=== PATIENT | female | born 1960 | race Caucasian/White ===

== ENCOUNTER 2019-07-02 19:05 | Observation (INO) ==
[2019-07-02] MEDS ORDERED: Ondansetron 4 MG/2 ML VIAL IVP ONE (19:47)
[2019-07-02] MEDS ORDERED: 0.9 % Sodium Chloride 1,000 ML IVC ONE (19:47)
[2019-07-02 21:53] LABS: Basophils # 0.1 K/mcL (0.0-0.2); Basophils % 0.5 %; Eosinophils # 0.1 K/mcL (0.0-0.6); Eosinophils % 0.7 %; Hematocrit 49.2 % (35.3-44.9); Hemoglobin 15.7 g/dL (11.5-15.4); Immature Granulocytes % 0.3 % (0-4); Lymphocytes # 5.1 K/mcL (0.6-4.6); Mean Corpuscular HGB Conc 31.9 g/dL (31.6-35.5); Mean Corpuscular Hemoglobin 31.9 pg (28.0-33.3); Mean Platelet Volume 9.9 fL (9.4-12.4); Monocytes % 7.4 %; Neutrophils # 7.1 K/mcL (1.6-8.9); Platelet Count 276 K/mcL (140-400); Red Blood Count 4.92 M/mcL (3.82-4.97); Red Cell Distribution Width 12.9 % (11.5-14.5); Segmented Neutrophils % 53.1 %; White Blood Count 13.4 K/mcL (4.3-11.1)
[2019-07-02 23:31] LABS: Bilirubin,Urine Negative (Negative); Blood,Urine Negative (Negative); Clarity,Urine Clear (Clear); Color,Urine Yellow (Yellow); Glucose,Urine (UA) Normal (Normal); Ketones,Urine Negative (Negative); Leukocyte Esterase,Urine Trace (Negative); Nitrite,Urine Negative (Negative); Protein,Urine Negative (Neg-Trace); Specific Gravity,Urine 1.013 (1.010-1.025); Urobilinogen,Urine Normal (Normal)
[2019-07-02 23:33] LABS: Bacteria,Urine None Seen per hpf (None-Few); Hyaline Casts,Urine None Seen per lpf (None-Few); RBC,Urine 0-3 per hpf (0-3); Squamous Epithelial Cell,Urine Many per lpf (None-Few)
[2019-07-02 23:34] LABS: BUN/Creatinine Ratio 24 (6-26); Blood Urea Nitrogen 19 mg/dL (6-20); Carbon Dioxide 26 mEq/L (23-29); Chloride 109 mEq/L (98-107); Glucose 96 mg/dL (70-105); Osmolality,Calculated 294 (280-300); Potassium 3.8 mEq/L (3.5-5.1); Sodium 141 mEq/L (136-145); eGFR For African Americans > 60 (> 60); eGFR For Non-African Americans > 60 (> 60)
[2019-07-02] MEDS ORDERED: Azithromycin 500 MG in 0.9 % Sodium Chloride 250 ML IVPB ONE (23:40)
[2019-07-02] MEDS ORDERED: cefTRIAXone 1,000 MG in Water for inj. (sterile) 10 ML IVP ONE (23:40)
[2019-07-02 23:43] LABS: Amphetamine Screen,Urine Negative ng/mL (Cutoff=1000); Barbiturate Screen,Urine Negative ng/mL (Cutoff=200); Benzodiazepines Screen,Urine Positive ng/mL (Cutoff=200); Cannabinoid Screen,Urine Negative ng/mL (Cutoff = 50); Cocaine Screen,Urine Negative ng/mL (Cutoff= 300); Opiate Screen,Urine Negative ng/mL (Cutoff=300); Phencyclidine Screen,Urine Negative ng/mL (Cutoff=25)
[2019-07-03] MEDS ORDERED: Ondansetron ODT 4 MG TAB.RAPDIS SL PRN (00:55)
[2019-07-03] MEDS ORDERED: Naloxone 0.4 MG/ML INJ IVP PRN (00:55)
[2019-07-03] MEDS ORDERED: Acetaminophen 325 MG TABLET PO PRN ×2 (00:58→18:20)
[2019-07-03] MEDS ORDERED: Albuterol 2.5 MG/3 ML NEBULIZER IH PRN (00:58)
[2019-07-03] MEDS: Ipratropium 1 PUFF INHALER IH SCH ×5 (03:54→19:47)
[2019-07-03 05:02] LABS: Hematocrit 40.9 % (35.3-44.9); Hemoglobin 13.1 g/dL (11.5-15.4); Mean Corpuscular Hemoglobin 32.2 pg (28.0-33.3); Mean Corpuscular Volume 100.5 fL (83.0-100.0); Mean Platelet Volume 9.7 fL (9.4-12.4); Platelet Count 215 K/mcL (140-400); Red Blood Count 4.07 M/mcL (3.82-4.97); Red Cell Distribution Width 12.7 % (11.5-14.5); White Blood Count 9.5 K/mcL (4.3-11.1)
[2019-07-03 05:21] LABS: BUN/Creatinine Ratio 23 (6-26); Blood Urea Nitrogen 18 mg/dL (6-20); Calcium 8.9 mg/dL (8.6-10.3); Carbon Dioxide 30 mEq/L (23-29); Chloride 109 mEq/L (98-107); Glucose 115 mg/dL (70-105); Osmolality,Calculated 299 (280-300); Sodium 143 mEq/L (136-145); eGFR For African Americans > 60 (> 60); eGFR For Non-African Americans > 60 (> 60)
[2019-07-03] MEDS ORDERED: *HR* Heparin 5,000 UNIT/ML VIAL SQ SCH (06:00)
[2019-07-03 07:03] LABS: Adenovirus Not Detected (Not Detect); Bordetella Pertussis Not Detected (Not Detect); Chlamydophila pneumoniae Not Detected (Not Detect); Coronavirus 229E Not Detected (Not Detect); Coronavirus HKU1 Not Detected (Not Detect); Coronavirus NL63 Not Detected (Not Detect); Coronavirus OC43 Not Detected (Not Detect); Human Metapneumovirus Not Detected (Not Detect); Human Rhinovirus/Enterovirus DETECTED (Not Detect); Influenza A Subtype 2009 H1 Not Detected (Not Detect); Influenza B Not Detected (Not Detect); Mycoplasma pneumoniae Not Detected (Not Detect); Parainfluenza Virus 1 Not Detected (Not Detect); Parainfluenza Virus 2 Not Detected (Not Detect); Parainfluenza Virus 3 Not Detected (Not Detect); Parainfluenza Virus 4 Not Detected (Not Detect); Respiratory Syncytial Virus Not Detected (Not Detect)
[2019-07-03] MEDS: Budesonide/Formoterol 160/4.5 1 PUFF INH IH SCH ×2 (07:32→19:46)
[2019-07-03] MEDS: amLODIPine 5 MG TABLET PO SCH (08:58)
[2019-07-03] MEDS ORDERED: predniSONE 20 MG TABLET PO SCH (09:00)
[2019-07-03] MEDS ORDERED: *HR* Labetalol 20 MG/4 ML SYRINGE IVP PRN (09:01)
[2019-07-03] MEDS ORDERED: cefTRIAXone 1,000 MG in Water for inj. (sterile) 10 ML IVP SCH (18:00)
[2019-07-04] MEDS: Ipratropium 1 PUFF INHALER IH SCH ×4 (00:27→11:07)
[2019-07-04] MEDS ORDERED: Azithromycin 500 MG in 0.9 % Sodium Chloride 250 ML IVPB SCH (01:00)
[2019-07-04 04:41] LABS: Hematocrit 40.6 % (35.3-44.9); Hemoglobin 13.3 g/dL (11.5-15.4); Mean Corpuscular HGB Conc 32.8 g/dL (31.6-35.5); Mean Corpuscular Hemoglobin 31.7 pg (28.0-33.3); Mean Corpuscular Volume 96.7 fL (83.0-100.0); Mean Platelet Volume 9.9 fL (9.4-12.4); Platelet Count 229 K/mcL (140-400); Red Cell Distribution Width 12.3 % (11.5-14.5); White Blood Count 12.2 K/mcL (4.3-11.1)
[2019-07-04 05:01] LABS: BUN/Creatinine Ratio 33 (6-26); Blood Urea Nitrogen 22 mg/dL (6-20); Calcium 8.9 mg/dL (8.6-10.3); Carbon Dioxide 26 mEq/L (23-29); Chloride 106 mEq/L (98-107); Glucose 108 mg/dL (70-105); Osmolality,Calculated 294 (280-300); Potassium 3.7 mEq/L (3.5-5.1); Sodium 140 mEq/L (136-145); eGFR For African Americans > 60 (> 60); eGFR For Non-African Americans > 60 (> 60)
[2019-07-04] MEDS ORDERED: *HR* Enoxaparin 40 MG/0.4 ML SYRINGE SQ SCH (06:00)
[2019-07-04] MEDS: amLODIPine 5 MG TABLET PO SCH (08:06)
[2019-07-04] MEDS: Budesonide/Formoterol 160/4.5 1 PUFF INH IH SCH (08:42)
[2019-07-04 09:37] VITALS: BP 146/97
[2019-07-04] MEDS ORDERED: cefTRIAXone 1,000 MG in Water for inj. (sterile) 10 ML IVP SCH (11:11)
== END 2019-07-04 12:04 | disposition home or self-care (01) ==
LOC: 2NENU 19:05 → EMEROOARM 19:05 → 2NENU 07-03 01:11
PROVIDERS: ADMIT Student in an Organized Health Care Education/Training Program; ATTEND Student in an Organized Health Care Education/Training Program

== ENCOUNTER 2020-07-24 14:55 | Inpatient (IN) ==
[2020-07-24] MEDS ORDERED: methylPREDNISolone 125 MG/2 ML VIAL IVP ONE (15:07)
[2020-07-24] MEDS ORDERED: 0.9 % Sodium Chloride 1,000 ML IVC ONE (15:07)
[2020-07-24] MEDS ORDERED: Ipratropium/Albuterol Neb 3 ML IH ONE (15:07)
[2020-07-24 15:56] LABS: Basophils % 0.1 %; Hematocrit 42.6 % (35.3-44.9); Immature Granulocytes % 0.5 % (0-4); Lymphocytes # 0.8 K/mcL (0.6-4.6); Lymphocytes % 4.2 %; Mean Corpuscular HGB Conc 32.9 g/dL (31.6-35.5); Mean Corpuscular Volume 94.2 fL (83.0-100.0); Monocytes # 0.6 K/mcL (0.0-1.3); Neutrophils # 16.7 K/mcL (1.6-8.9); Platelet Count 237 K/mcL (140-400); Red Blood Count 4.52 M/mcL (3.82-4.97); Red Cell Distribution Width 13.2 % (11.5-14.5); Segmented Neutrophils % 92.2 %; White Blood Count 18.1 K/mcL (4.3-11.1)
[2020-07-24 16:22] LABS: BUN/Creatinine Ratio 18 (6-26); Blood Urea Nitrogen 13 mg/dL (8-23); Calcium 9.7 mg/dL (8.6-10.3); Carbon Dioxide 26 mEq/L (23-29); Chloride 105 mEq/L (98-107); Glucose 147 mg/dL (70-105); Osmolality,Calculated 295 (280-300); Potassium 3.8 mEq/L (3.5-5.1); Sodium 141 mEq/L (136-145); Troponin I < 0.03 ng/mL (< 0.04); eGFR For African Americans > 60 (> 60); eGFR For Non-African Americans > 60 (> 60)
[2020-07-24] MEDS ORDERED: Magnesium Sulfate 1 GM/102 ML PIGGYBACK IVPB STA (16:50)
[2020-07-24] MEDS ORDERED: *HR* LORazepam 2 MG/ML VIAL IVP ONE (17:19)
[2020-07-24 18:00] LABS: Adenovirus Not Detected (Not Detect); Coronavirus 229E Not Detected (Not Detect); Coronavirus HKU1 Not Detected (Not Detect); Coronavirus NL63 Not Detected (Not Detect); Coronavirus OC43 DETECTED (Not Detect); SARS-CoV-2 Not Detected (Not Detect)
[2020-07-24 18:01] LABS: Bordetella Pertussis Not Detected (Not Detect); Chlamydophila pneumoniae Not Detected (Not Detect); Human Metapneumovirus Not Detected (Not Detect); Human Rhinovirus/Enterovirus Not Detected (Not Detect); Influenza A Subtype 2009 H1 Not Detected (Not Detect); Influenza B Not Detected (Not Detect); Mycoplasma pneumoniae Not Detected (Not Detect); Parainfluenza Virus 1 Not Detected (Not Detect); Parainfluenza Virus 2 Not Detected (Not Detect); Parainfluenza Virus 3 Not Detected (Not Detect); Parainfluenza Virus 4 Not Detected (Not Detect); Respiratory Syncytial Virus Not Detected (Not Detect)
[2020-07-24] MEDS ORDERED: Ondansetron 4 MG/2 ML VIAL IVP PRN (20:23)
[2020-07-24] MEDS ORDERED: Naloxone 0.4 MG/ML INJ IVP PRN (20:23)
[2020-07-24] MEDS ORDERED: Acetaminophen 325 MG TABLET PO PRN (20:23)
[2020-07-24] MEDS ORDERED: Albuterol 2.5 MG/3 ML NEBULIZER IH PRN (21:50)
[2020-07-24] MEDS: Ipratropium/Albuterol Neb 3 ML IH SCH (22:17)
[2020-07-25] MEDS ORDERED: Dextrose Gel 15 GM/37.5 ML TUBE PO PRN ×2 (00:15)
[2020-07-25] MEDS ORDERED: D5% in Water 1,000 ML IVC PRN (00:15)
[2020-07-25] MEDS ORDERED: *HR* Dextrose 50 % in Water (Vial) 50 ML VIAL IVP PRN (00:15)
[2020-07-25] MEDS: Azithromycin 500 MG in 0.9 % Sodium Chloride 250 ML IVPB SCH ×2 (00:45→21:00)
[2020-07-25 02:49] LABS: Basophils % 0.1 %; Hematocrit 37.4 % (35.3-44.9); Hemoglobin 12.5 g/dL (11.5-15.4); Immature Granulocytes % 0.7 % (0-4); Lymphocytes # 0.8 K/mcL (0.6-4.6); Lymphocytes % 5.5 %; Mean Corpuscular HGB Conc 33.4 g/dL (31.6-35.5); Mean Corpuscular Volume 95.7 fL (83.0-100.0); Mean Platelet Volume 10.3 fL (9.4-12.4); Monocytes # 0.7 K/mcL (0.0-1.3); Monocytes % 4.8 %; Neutrophils # 12.3 K/mcL (1.6-8.9); Platelet Count 187 K/mcL (140-400); Red Blood Count 3.91 M/mcL (3.82-4.97); Red Cell Distribution Width 13.6 % (11.5-14.5); Segmented Neutrophils % 88.9 %; White Blood Count 13.8 K/mcL (4.3-11.1)
[2020-07-25 03:08] LABS: Alanine Aminotransferase 14 Units/L (7-52); Albumin 3.5 g/dL (3.5-5.7); Albumin/Globulin Ratio 1.6 (1.1-2.2); Alkaline Phosphatase 51 Units/L (34-104); Aspartate Amino Transferase 12 Units/L (13-39); BUN/Creatinine Ratio 23 (6-26); Bilirubin,Total 0.3 mg/dL (0.3-1.0); Blood Urea Nitrogen 15 mg/dL (8-23); Calcium 8.6 mg/dL (8.6-10.3); Carbon Dioxide 24 mEq/L (23-29); Chloride 108 mEq/L (98-107); Globulin 2.2 g/dL (2.4-3.5); Glucose 258 mg/dL (70-105); Magnesium 2.1 mg/dL (1.6-2.6); Osmolality,Calculated 300 (280-300); Phosphorous 2.4 mg/dL (2.7-4.5); Sodium 140 mEq/L (136-145); Total Protein 5.7 g/dL (6.4-8.9); Troponin I < 0.03 ng/mL (< 0.04); eGFR For African Americans > 60 (> 60); eGFR For Non-African Americans > 60 (> 60)
[2020-07-25] MEDS: Ipratropium/Albuterol Neb 3 ML IH SCH ×4 (04:15→21:23)
[2020-07-25] MEDS: *HR* Heparin 5,000 UNIT/ML VIAL SQ SCH ×2 (06:51→17:09)
[2020-07-25] MEDS: Insulin LISPRO 300 UNITS/3 ML VIAL SUBQ SCH ×4 (07:16→20:58)
[2020-07-25] MEDS ORDERED: predniSONE 20 MG TABLET PO SCH (09:00)
[2020-07-25] MEDS ORDERED: methylPREDNISolone 125 MG/2 ML VIAL IVP ONE (10:26)
[2020-07-25] MEDS ORDERED: *HR* LORazepam 1 MG TABLET PO ONE (10:27)
[2020-07-25] MEDS: Budesonide/Formoterol 160/4.5 1 PUFF INH IH SCH ×2 (10:40→21:23)
[2020-07-25] MEDS: Nicotine 21 MG PATCH.TD24 TD SCH (10:54)
[2020-07-25] MEDS ORDERED: Nicotine 2 MG GUM BC PRN (12:00)
[2020-07-25 12:01] LABS: Hemoglobin 12.5 g/dL (11.5-15.4)
[2020-07-25] MEDS: lisinopriL 20 MG TABLET PO SCH (14:40)
[2020-07-25] MEDS: Benzonatate 100 MG CAPSULE PO PRN (14:40)
[2020-07-25] MEDS: MethylPREDNISolone 40 MG/ML VIAL IVP SCH (17:08)
[2020-07-25] MEDS: QUEtiapine Fumarate 25 MG TABLET PO SCH (20:59)
[2020-07-25] MEDS: Melatonin 3 MG TABLET PO PRN (21:18)
[2020-07-26] MEDS: Ipratropium/Albuterol Neb 3 ML IH SCH ×4 (03:29→21:43)
[2020-07-26] MEDS: *HR* Heparin 5,000 UNIT/ML VIAL SQ SCH ×2 (05:39→18:03)
[2020-07-26] MEDS: MethylPREDNISolone 40 MG/ML VIAL IVP SCH ×2 (05:40→18:03)
[2020-07-26 06:01] LABS: Hematocrit 38.2 % (35.3-44.9); Hemoglobin 12.3 g/dL (11.5-15.4); Mean Corpuscular HGB Conc 32.2 g/dL (31.6-35.5); Mean Corpuscular Hemoglobin 31.1 pg (28.0-33.3); Mean Corpuscular Volume 96.5 fL (83.0-100.0); Platelet Count 191 K/mcL (140-400); Red Blood Count 3.96 M/mcL (3.82-4.97); Red Cell Distribution Width 13.4 % (11.5-14.5); White Blood Count 12.5 K/mcL (4.3-11.1)
[2020-07-26 06:20] LABS: BUN/Creatinine Ratio 24 (6-26); Blood Urea Nitrogen 17 mg/dL (8-23); Calcium 8.9 mg/dL (8.6-10.3); Carbon Dioxide 33 mEq/L (23-29); Chloride 105 mEq/L (98-107); Glucose 131 mg/dL (70-105); Magnesium 2.1 mg/dL (1.6-2.6); Osmolality,Calculated 299 (280-300); Phosphorous 3.4 mg/dL (2.7-4.5); Potassium 3.6 mEq/L (3.5-5.1); Sodium 143 mEq/L (136-145); eGFR For African Americans > 60 (> 60); eGFR For Non-African Americans > 60 (> 60)
[2020-07-26 07:08] LABS: Estimated Average Glucose 126 mg/dl
[2020-07-26] MEDS: Insulin LISPRO 300 UNITS/3 ML VIAL SUBQ SCH ×4 (07:55→20:50)
[2020-07-26] MEDS: lisinopriL 20 MG TABLET PO SCH (07:57)
[2020-07-26] MEDS: Cholecalciferol (D-3) 1,000 UNIT (25MCG) TABLET PO SCH (07:57)
[2020-07-26] MEDS: Nicotine 21 MG PATCH.TD24 TD SCH (07:57)
[2020-07-26] MEDS: Tiotropium 10 INH DOSE IH SCH (11:06)
[2020-07-26] MEDS: Budesonide/Formoterol 160/4.5 1 PUFF INH IH SCH ×2 (11:08→21:43)
[2020-07-26] MEDS: ALPRAZolam 0.5 MG TABLET PO PRN ×2 (14:16→20:52)
[2020-07-26] MEDS: QUEtiapine Fumarate 25 MG TABLET PO SCH (20:52)
[2020-07-26] MEDS: Melatonin 3 MG TABLET PO PRN (20:52)
[2020-07-26] MEDS: Benzonatate 100 MG CAPSULE PO PRN (20:52)
[2020-07-26] MEDS: Azithromycin 500 MG in 0.9 % Sodium Chloride 250 ML IVPB SCH (20:53)
[2020-07-26] MEDS ORDERED: Nicotine 21 MG PATCH.TD24 TD ONE (21:15)
[2020-07-27 02:54] LABS: Hematocrit 38.1 % (35.3-44.9); Hemoglobin 12.2 g/dL (11.5-15.4); Mean Corpuscular Volume 96.9 fL (83.0-100.0); Platelet Count 189 K/mcL (140-400); Red Blood Count 3.93 M/mcL (3.82-4.97); Red Cell Distribution Width 13.2 % (11.5-14.5); White Blood Count 11.4 K/mcL (4.3-11.1)
[2020-07-27 03:09] LABS: BUN/Creatinine Ratio 38 (6-26); Blood Urea Nitrogen 25 mg/dL (8-23); Calcium 8.4 mg/dL (8.6-10.3); Carbon Dioxide 30 mEq/L (23-29); Chloride 105 mEq/L (98-107); Glucose 159 mg/dL (70-105); Magnesium 2.1 mg/dL (1.6-2.6); Osmolality,Calculated 296 (280-300); Phosphorous 2.6 mg/dL (2.7-4.5); Potassium 3.9 mEq/L (3.5-5.1); Sodium 139 mEq/L (136-145); eGFR For African Americans > 60 (> 60); eGFR For Non-African Americans > 60 (> 60)
[2020-07-27] MEDS: Ipratropium/Albuterol Neb 3 ML IH SCH ×2 (04:06→10:19)
[2020-07-27] MEDS: *HR* Heparin 5,000 UNIT/ML VIAL SQ SCH ×2 (05:51→16:52)
[2020-07-27] MEDS: MethylPREDNISolone 40 MG/ML VIAL IVP SCH ×2 (05:51→16:52)
[2020-07-27] MEDS: Tiotropium 10 INH DOSE IH SCH (07:11)
[2020-07-27] MEDS: Insulin LISPRO 300 UNITS/3 ML VIAL SUBQ SCH ×4 (09:37→20:19)
[2020-07-27] MEDS: Nicotine 21 MG PATCH.TD24 TD SCH (09:37)
[2020-07-27] MEDS: Cholecalciferol (D-3) 1,000 UNIT (25MCG) TABLET PO SCH (09:37)
[2020-07-27] MEDS: lisinopriL 20 MG TABLET PO SCH (09:37)
[2020-07-27] MEDS: ALPRAZolam 0.5 MG TABLET PO PRN ×2 (09:40→18:19)
[2020-07-27] MEDS: Budesonide/Formoterol 160/4.5 1 PUFF INH IH SCH ×2 (10:19→19:40)
[2020-07-27] MEDS: Acetylcysteine 10% 2 ML INHSOL IH SCH ×3 (11:17→23:56)
[2020-07-27] MEDS: Albuterol 2.5 MG/3 ML NEBULIZER IH SCH ×4 (11:17→23:56)
[2020-07-27] MEDS: QUEtiapine Fumarate 25 MG TABLET PO SCH (20:05)
[2020-07-27] MEDS: Melatonin 3 MG TABLET PO PRN (21:57)
[2020-07-28] MEDS: Albuterol 2.5 MG/3 ML NEBULIZER IH SCH ×2 (03:52→07:28)
[2020-07-28 04:12] LABS: Hematocrit 39.8 % (35.3-44.9); Mean Corpuscular HGB Conc 32.7 g/dL (31.6-35.5); Mean Corpuscular Hemoglobin 31.3 pg (28.0-33.3); Mean Corpuscular Volume 95.7 fL (83.0-100.0); Mean Platelet Volume 9.8 fL (9.4-12.4); Platelet Count 240 K/mcL (140-400); Red Blood Count 4.16 M/mcL (3.82-4.97); Red Cell Distribution Width 12.9 % (11.5-14.5); White Blood Count 12.1 K/mcL (4.3-11.1)
[2020-07-28 04:31] LABS: BUN/Creatinine Ratio 37 (6-26); Blood Urea Nitrogen 20 mg/dL (8-23); Calcium 8.6 mg/dL (8.6-10.3); Carbon Dioxide 30 mEq/L (23-29); Chloride 105 mEq/L (98-107); Glucose 142 mg/dL (70-105); Magnesium 2.1 mg/dL (1.6-2.6); Osmolality,Calculated 297 (280-300); Phosphorous 2.5 mg/dL (2.7-4.5); Potassium 3.7 mEq/L (3.5-5.1); Sodium 141 mEq/L (136-145); eGFR For African Americans > 60 (> 60); eGFR For Non-African Americans > 60 (> 60)
[2020-07-28] MEDS: MethylPREDNISolone 40 MG/ML VIAL IVP SCH ×4 (05:03→23:49)
[2020-07-28] MEDS: *HR* Heparin 5,000 UNIT/ML VIAL SQ SCH ×2 (05:04→16:46)
[2020-07-28] MEDS: Budesonide/Formoterol 160/4.5 1 PUFF INH IH SCH ×2 (07:28→20:29)
[2020-07-28] MEDS: Insulin LISPRO 300 UNITS/3 ML VIAL SUBQ SCH ×4 (08:10→21:27)
[2020-07-28] MEDS: Nicotine 21 MG PATCH.TD24 TD SCH (08:10)
[2020-07-28] MEDS: Cholecalciferol (D-3) 1,000 UNIT (25MCG) TABLET PO SCH (08:11)
[2020-07-28] MEDS: lisinopriL 20 MG TABLET PO SCH (08:11)
[2020-07-28] MEDS: ALPRAZolam 0.5 MG TABLET PO PRN ×2 (08:13→16:46)
[2020-07-28] MEDS: Ipratropium/Albuterol Neb 3 ML IH SCH ×5 (09:54→23:59)
[2020-07-28] MEDS: amLODIPine 5 MG TABLET PO SCH (11:23)
[2020-07-28] MEDS: polyethylene glycoL 3350 17 GM POWD.PACK PO SCH (14:05)
[2020-07-28] MEDS: QUEtiapine Fumarate 25 MG TABLET PO SCH (21:25)
[2020-07-28] MEDS: Melatonin 3 MG TABLET PO PRN (21:33)
[2020-07-29] MEDS: Ipratropium/Albuterol Neb 3 ML IH SCH ×3 (03:52→10:43)
[2020-07-29] MEDS: *HR* Heparin 5,000 UNIT/ML VIAL SQ SCH (05:27)
[2020-07-29 07:09] LABS: Hematocrit 40.7 % (35.3-44.9); Hemoglobin 13.8 g/dL (11.5-15.4); Mean Corpuscular HGB Conc 33.9 g/dL (31.6-35.5); Mean Corpuscular Hemoglobin 31.8 pg (28.0-33.3); Mean Corpuscular Volume 93.8 fL (83.0-100.0); Mean Platelet Volume 9.9 fL (9.4-12.4); Platelet Count 287 K/mcL (140-400); Red Blood Count 4.34 M/mcL (3.82-4.97); Red Cell Distribution Width 12.9 % (11.5-14.5); White Blood Count 15.5 K/mcL (4.3-11.1)
[2020-07-29 07:12] LABS: BUN/Creatinine Ratio 34 (6-26); Blood Urea Nitrogen 20 mg/dL (8-23); Calcium 8.8 mg/dL (8.6-10.3); Carbon Dioxide 31 mEq/L (23-29); Chloride 105 mEq/L (98-107); Glucose 143 mg/dL (70-105); Magnesium 2.1 mg/dL (1.6-2.6); Osmolality,Calculated 297 (280-300); Phosphorous 2.9 mg/dL (2.7-4.5); Sodium 141 mEq/L (136-145); eGFR For African Americans > 60 (> 60); eGFR For Non-African Americans > 60 (> 60)
[2020-07-29 07:50] VITALS: BP 153/88
[2020-07-29] MEDS: Budesonide/Formoterol 160/4.5 1 PUFF INH IH SCH (07:53)
[2020-07-29] MEDS: ALPRAZolam 0.5 MG TABLET PO PRN (08:22)
[2020-07-29] MEDS: amLODIPine 5 MG TABLET PO SCH (08:22)
[2020-07-29] MEDS: lisinopriL 20 MG TABLET PO SCH (08:22)
[2020-07-29] MEDS: Cholecalciferol (D-3) 1,000 UNIT (25MCG) TABLET PO SCH (08:22)
[2020-07-29] MEDS: MethylPREDNISolone 40 MG/ML VIAL IVP SCH (08:23)
[2020-07-29] MEDS: Nicotine 21 MG PATCH.TD24 TD SCH (08:23)
[2020-07-29] MEDS: Insulin LISPRO 300 UNITS/3 ML VIAL SUBQ SCH (08:23)
[2020-07-29] MEDS: polyethylene glycoL 3350 17 GM POWD.PACK PO SCH (08:24)
[2020-07-29 08:26] LABS: Lymphocytes # 2.5 K/mcL (0.6-4.6); Monocytes # 1.9 K/mcL (0.0-1.3); Neutrophils # 11.2 K/mcL (1.6-8.9); Platelet Estimate Normal (Normal)
== END 2020-07-29 11:13 | disposition home or self-care (01) | DRG 140 ==
LOC: 2ANU 14:55 → EMEROOARM 14:55 → SUATTDRO 18:55 → 2ANU 20:05
PROVIDERS: ADMIT Internal Medicine; ATTEND Internal Medicine

== ENCOUNTER 2021-10-01 04:18 | Observation (INO) ==
[2021-10-01] MEDS ORDERED: predniSONE 20 MG TABLET PO ONE (05:26)
[2021-10-01] MEDS ORDERED: Ipratropium/Albuterol Neb 3 ML IH ONE (05:26)
[2021-10-01 05:51] LABS: Basophils # 0.1 K/mcL (0.0-0.2); Basophils % 0.7 %; Eosinophils # 0.2 K/mcL (0.0-0.6); Eosinophils % 1.3 %; Hematocrit 40.9 % (35.3-44.9); Hemoglobin 13.8 g/dL (11.5-15.4); Immature Granulocytes % 0.4 % (0-4); Lymphocytes % 17.3 %; Mean Corpuscular HGB Conc 33.7 g/dL (31.6-35.5); Mean Corpuscular Hemoglobin 30.9 pg (28.0-33.3); Mean Corpuscular Volume 91.7 fL (83.0-100.0); Mean Platelet Volume 9.1 fL (9.4-12.4); Monocytes # 0.7 K/mcL (0.0-1.3); Monocytes % 6.2 %; Neutrophils # 8.4 K/mcL (1.6-8.9); Platelet Count 255 K/mcL (140-400); Red Blood Count 4.46 M/mcL (3.82-4.97); Red Cell Distribution Width 13.4 % (11.5-14.5); Segmented Neutrophils % 74.1 %; White Blood Count 11.3 K/mcL (4.3-11.1)
[2021-10-01 06:16] LABS: BUN/Creatinine Ratio 18 (6-26); Blood Urea Nitrogen 12 mg/dL (8-23); Calcium 9.4 mg/dL (8.6-10.3); Carbon Dioxide 28 mEq/L (23-29); Chloride 106 mEq/L (98-107); Glucose 112 mg/dL (70-105); Osmolality,Calculated 293 (280-300); Potassium 3.9 mEq/L (3.5-5.1); Sodium 141 mEq/L (136-145); eGFR For African Americans > 60 (> 60); eGFR For Non-African Americans > 60 (> 60)
[2021-10-01 06:23] LABS: Influenza A PCR Negative (Negative); Influenza B PCR Negative (Negative); Resp. Syncytial Virus PCR Negative (Negative)
[2021-10-01 06:30] LABS: Troponin I 0.29 ng/mL (< 0.04)
[2021-10-01 06:31] LABS: SARS-CoV-2 by PCR (In House) Negative (Negative)
[2021-10-01] MEDS ORDERED: Aspirin 81 MG TAB.CHEW PO ONE (06:43)
[2021-10-01] MEDS ORDERED: *HR* Heparin 5,000 UNIT/ML VIAL IVP ONE (06:44)
[2021-10-01] MEDS ORDERED: *HR* Heparin 5,000 UNIT/ML VIAL IVP PRN ×2 (06:44)
[2021-10-01 07:12] LABS: Hematocrit 31.5 % (35.3-44.9); Mean Corpuscular Hemoglobin 31.6 pg (28.0-33.3); Mean Corpuscular Volume 92.9 fL (83.0-100.0); Mean Platelet Volume 9.3 fL (9.4-12.4); Platelet Count 190 K/mcL (140-400); Red Blood Count 3.39 M/mcL (3.82-4.97); Red Cell Distribution Width 13.4 % (11.5-14.5); White Blood Count 8.6 K/mcL (4.3-11.1)
[2021-10-01 07:16] LABS: Hemoglobin 10.7 g/dL (11.5-15.4)
[2021-10-01 07:22] LABS: Heparin anti-factor XA UFH < 0.04 IU/mL (0.30-0.70)
[2021-10-01] MEDS ORDERED: Ondansetron 4 MG/2 ML VIAL IVP PRN (07:22)
[2021-10-01 07:23] LABS: Prothrombin Time 11.2 Seconds (9.4-12.1)
[2021-10-01] MEDS ORDERED: Perflutren Lipid Microsphere 1.3 ML in 0.9 % Sodium Chloride 8.7 ML IVP PRN (07:23)
[2021-10-01] MEDS: Heparin 25,000UNIT/250ML 1/2NS 25,000 UNIT/250 ML IV.SOLN IVC SCH (08:04)
[2021-10-01] MEDS: Nicotine 21 MG PATCH.TD24 TD SCH (09:03)
[2021-10-01] MEDS: Azithromycin 500 MG in 0.9 % Sodium Chloride 250 ML IVPB SCH (09:03)
[2021-10-01] MEDS: Albuterol 2.5 MG/3 ML NEBULIZER IH SCH ×3 (11:11→20:41)
[2021-10-01] MEDS: *HR* LORazepam 0.5 MG TABLET PO PRN ×2 (11:11→19:14)
[2021-10-01] MEDS: Aspirin 81 MG TAB.CHEW PO SCH (16:28)
[2021-10-01] MEDS: amLODIPine 5 MG TABLET PO SCH (17:44)
[2021-10-01] MEDS: QUEtiapine Fumarate 25 MG TABLET PO SCH (20:31)
[2021-10-01] MEDS: Famotidine 20 MG TABLET PO SCH (20:32)
[2021-10-02] MEDS: Albuterol 2.5 MG/3 ML NEBULIZER IH SCH ×7 (00:01→22:53)
[2021-10-02 02:14] LABS: Blood Urea Nitrogen 16 mg/dL (8-23); Calcium 8.9 mg/dL (8.6-10.3); Carbon Dioxide 25 mEq/L (23-29); Chloride 108 mEq/L (98-107); Glucose 145 mg/dL (70-105); Osmolality,Calculated 294 (280-300); Potassium 3.5 mEq/L (3.5-5.1); Sodium 140 mEq/L (136-145)
[2021-10-02 03:22] LABS: BUN/Creatinine Ratio 19 (6-26); eGFR For African Americans > 60 (> 60); eGFR For Non-African Americans > 60 (> 60)
[2021-10-02 05:29] LABS: Basophils # 0.1 K/mcL (0.0-0.2); Basophils % 0.7 %; Eosinophils # 0.1 K/mcL (0.0-0.6); Eosinophils % 0.9 %; Hematocrit 37.8 % (35.3-44.9); Hemoglobin 12.7 g/dL (11.5-15.4); Immature Granulocytes % 0.3 % (0-4); Lymphocytes # 4.6 K/mcL (0.6-4.6); Lymphocytes % 48.7 %; Mean Corpuscular HGB Conc 33.6 g/dL (31.6-35.5); Mean Corpuscular Hemoglobin 30.9 pg (28.0-33.3); Mean Platelet Volume 9.7 fL (9.4-12.4); Monocytes # 0.8 K/mcL (0.0-1.3); Monocytes % 8.2 %; Neutrophils # 3.9 K/mcL (1.6-8.9); Platelet Count 236 K/mcL (140-400); Red Blood Count 4.11 M/mcL (3.82-4.97); Red Cell Distribution Width 13.7 % (11.5-14.5); Segmented Neutrophils % 41.2 %; White Blood Count 9.4 K/mcL (4.3-11.1)
[2021-10-02] MEDS: Aspirin 81 MG TAB.CHEW PO SCH (07:19)
[2021-10-02] MEDS: *HR* LORazepam 0.5 MG TABLET PO PRN ×3 (07:19→22:15)
[2021-10-02] MEDS: amLODIPine 5 MG TABLET PO SCH (07:19)
[2021-10-02] MEDS: Famotidine 20 MG TABLET PO SCH ×2 (07:19→19:59)
[2021-10-02] MEDS: Nicotine 21 MG PATCH.TD24 TD SCH (07:20)
[2021-10-02] MEDS: Cholecalciferol (D-3) 1,000 UNIT (25MCG) TABLET PO SCH (07:39)
[2021-10-02] MEDS: Azithromycin 500 MG in 0.9 % Sodium Chloride 250 ML IVPB SCH (07:39)
[2021-10-02] MEDS ORDERED: Perflutren Lipid Microsphere 1.3 ML in 0.9 % Sodium Chloride 8.7 ML IVP PRN (08:15)
[2021-10-02] MEDS ORDERED: lisinopriL 20 MG TABLET PO SCH (09:00)
[2021-10-02] MEDS ORDERED: MethylPREDNISolone 40 MG/ML VIAL IVP SCH (09:00)
[2021-10-02] MEDS: QUEtiapine Fumarate 25 MG TABLET PO SCH (19:59)
[2021-10-03] MEDS: Heparin 25,000UNIT/250ML 1/2NS 25,000 UNIT/250 ML IV.SOLN IVC SCH ×3 (00:50→19:43)
[2021-10-03] MEDS: Albuterol 2.5 MG/3 ML NEBULIZER IH SCH ×2 (04:32→07:33)
[2021-10-03] MEDS ORDERED: Benzonatate 100 MG CAPSULE PO PRN (08:33)
[2021-10-03] MEDS: Ipratropium/Albuterol Neb 3 ML IH SCH ×3 (08:54→22:51)
[2021-10-03] MEDS: Cholecalciferol (D-3) 1,000 UNIT (25MCG) TABLET PO SCH (09:26)
[2021-10-03] MEDS: predniSONE 20 MG TABLET PO SCH (09:26)
[2021-10-03] MEDS: Famotidine 20 MG TABLET PO SCH ×2 (09:26→20:44)
[2021-10-03] MEDS: Aspirin 81 MG TAB.CHEW PO SCH (09:27)
[2021-10-03] MEDS: Nicotine 21 MG PATCH.TD24 TD SCH (09:27)
[2021-10-03] MEDS: Azithromycin 250 MG TABLET PO SCH (09:27)
[2021-10-03] MEDS: *HR* LORazepam 0.5 MG TABLET PO PRN ×3 (09:31→22:11)
[2021-10-03] MEDS: Budesonide/Formoterol 160/4.5 1 PUFF INH IH SCH ×2 (09:38→22:51)
[2021-10-03 10:25] LABS: ABG Base Excess 3 mEq/L (-2 to 3); ABG HCO3 27 mEq/L (21-27); ABG Oxygen Saturation 96 % (95-98); ABG PCO2 41 mmHg (35-45); ABG PH 7.43 pH Units (7.32-7.45); ABG PO2 80 mmHg (85-104); ABG TCO2 28 mEq/L (20-26)
[2021-10-03 12:10] LABS: Hematocrit 39.3 % (35.3-44.9); Hemoglobin 12.9 g/dL (11.5-15.4); Mean Corpuscular HGB Conc 32.8 g/dL (31.6-35.5); Mean Corpuscular Hemoglobin 30.6 pg (28.0-33.3); Mean Corpuscular Volume 93.3 fL (83.0-100.0); Mean Platelet Volume 9.8 fL (9.4-12.4); Platelet Count 252 K/mcL (140-400); Red Blood Count 4.21 M/mcL (3.82-4.97); Red Cell Distribution Width 14.1 % (11.5-14.5)
[2021-10-03 12:46] LABS: BUN/Creatinine Ratio 22 (6-26); Blood Urea Nitrogen 16 mg/dL (8-23); Carbon Dioxide 24 mEq/L (23-29); Chloride 108 mEq/L (98-107); Glucose 99 mg/dL (70-105); Osmolality,Calculated 295 (280-300); Potassium 3.9 mEq/L (3.5-5.1); Sodium 142 mEq/L (136-145); eGFR For African Americans > 60 (> 60); eGFR For Non-African Americans > 60 (> 60)
[2021-10-03] MEDS ORDERED: *HR* Heparin 10,000 UNIT/10 ML VIAL ONE (13:27)
[2021-10-03] MEDS ORDERED: Iopamidol - 370 200 ML INFUS..BTL ONE (13:27)
[2021-10-03] MEDS ORDERED: Heparin 1,000 UNITS/500 mL 500 ML ONE (13:27)
[2021-10-03] MEDS ORDERED: Nitroglycerin 1,000 MCG/5 ML VIAL IV ONE (13:27)
[2021-10-03] MEDS ORDERED: 0.9 % Sodium Chloride 2,000 ML ONE (13:27)
[2021-10-03] MEDS ORDERED: *HR* Midazolam HCl 2 MG/2 ML VIAL ONE (13:35)
[2021-10-03] MEDS ORDERED: *HR* FentaNYL (PF) 100 MCG/2 ML VIAL ONE (13:35)
[2021-10-03] MEDS: Metoprolol XL (24 HR) Succ 25 MG TAB.ER.24H PO SCH (17:36)
[2021-10-03] MEDS: QUEtiapine Fumarate 25 MG TABLET PO SCH (20:44)
[2021-10-04 03:52] LABS: Basophils % 0.4 %; Eosinophils % 0.2 %; Hemoglobin 12.5 g/dL (11.5-15.4); Immature Granulocytes % 0.3 % (0-4); Lymphocytes # 3.5 K/mcL (0.6-4.6); Lymphocytes % 32.8 %; Mean Corpuscular HGB Conc 32.9 g/dL (31.6-35.5); Mean Corpuscular Hemoglobin 30.5 pg (28.0-33.3); Mean Corpuscular Volume 92.7 fL (83.0-100.0); Mean Platelet Volume 9.3 fL (9.4-12.4); Monocytes # 0.9 K/mcL (0.0-1.3); Monocytes % 8.4 %; Neutrophils # 6.1 K/mcL (1.6-8.9); Platelet Count 222 K/mcL (140-400); Segmented Neutrophils % 57.9 %; White Blood Count 10.6 K/mcL (4.3-11.1)
[2021-10-04] MEDS: Ipratropium/Albuterol Neb 3 ML IH SCH ×3 (04:10→15:37)
[2021-10-04 04:13] LABS: Alanine Aminotransferase 11 Units/L (7-52); Albumin 3.5 g/dL (3.5-5.7); Albumin/Globulin Ratio 1.8 (1.1-2.2); Alkaline Phosphatase 48 Units/L (34-104); Aspartate Amino Transferase 13 Units/L (13-39); BUN/Creatinine Ratio 26 (6-26); Bilirubin,Total 0.3 mg/dL (0.3-1.0); Blood Urea Nitrogen 16 mg/dL (8-23); Calcium 8.6 mg/dL (8.6-10.3); Carbon Dioxide 24 mEq/L (23-29); Chloride 109 mEq/L (98-107); Glucose 111 mg/dL (70-105); Osmolality,Calculated 294 (280-300); Potassium 3.6 mEq/L (3.5-5.1); Sodium 141 mEq/L (136-145); Total Protein 5.5 g/dL (6.4-8.9); eGFR For African Americans > 60 (> 60); eGFR For Non-African Americans > 60 (> 60)
[2021-10-04 08:00] VITALS: BP 139/82; PULSE 99; TEMP 97.4
[2021-10-04] MEDS: Metoprolol XL (24 HR) Succ 25 MG TAB.ER.24H PO SCH (09:05)
[2021-10-04] MEDS: Aspirin 81 MG TAB.CHEW PO SCH (09:05)
[2021-10-04] MEDS: *HR* LORazepam 0.5 MG TABLET PO PRN ×2 (09:05→14:57)
[2021-10-04] MEDS: predniSONE 20 MG TABLET PO SCH (09:05)
[2021-10-04] MEDS: Azithromycin 250 MG TABLET PO SCH (09:05)
[2021-10-04] MEDS: Cholecalciferol (D-3) 1,000 UNIT (25MCG) TABLET PO SCH (09:06)
[2021-10-04] MEDS: Nicotine 21 MG PATCH.TD24 TD SCH (09:06)
[2021-10-04] MEDS: Famotidine 20 MG TABLET PO SCH (09:06)
[2021-10-04] MEDS ORDERED: Tiotropium 10 INH DOSE IH SCH (10:00)
[2021-10-04] MEDS: Budesonide/Formoterol 160/4.5 1 PUFF INH IH SCH (10:04)
[2021-10-04 15:30] VITALS: O2SAT 94
== END 2021-10-04 17:11 | disposition home or self-care (01) ==
LOC: EMEROOARM 04:18 → 3NENU 04:18 → SUATTDRO 13:42 → 3NENU 15:36
PROVIDERS: ADMIT Internal Medicine; ATTEND General Practice

== ENCOUNTER 2021-10-16 18:56 | Observation (INO) ==
[2021-10-16 20:10] LABS: Basophils # 0.1 K/mcL (0.0-0.2); Basophils % 0.4 %; Eosinophils # 0.2 K/mcL (0.0-0.6); Eosinophils % 1.4 %; Hematocrit 40.7 % (35.3-44.9); Hemoglobin 13.6 g/dL (11.5-15.4); Immature Granulocytes % 0.4 % (0-4); Lymphocytes % 30.7 %; Mean Corpuscular HGB Conc 33.4 g/dL (31.6-35.5); Mean Corpuscular Hemoglobin 30.9 pg (28.0-33.3); Mean Corpuscular Volume 92.5 fL (83.0-100.0); Mean Platelet Volume 9.1 fL (9.4-12.4); Monocytes # 1.1 K/mcL (0.0-1.3); Monocytes % 8.2 %; Neutrophils # 7.7 K/mcL (1.6-8.9); Platelet Count 314 K/mcL (140-400); Segmented Neutrophils % 58.9 %
[2021-10-16] MEDS ORDERED: Ipratropium/Albuterol Neb 3 ML ONE (20:13)
[2021-10-16] MEDS ORDERED: methylPREDNISolone 125 MG/2 ML VIAL IVP ONE (20:25)
[2021-10-16] MEDS ORDERED: Ketorolac 30 MG/ML VIAL IVP ONE (20:27)
[2021-10-16 20:28] LABS: BUN/Creatinine Ratio 18 (6-26); Blood Urea Nitrogen 12 mg/dL (8-23); Calcium 9.7 mg/dL (8.6-10.3); Carbon Dioxide 24 mEq/L (23-29); Chloride 106 mEq/L (98-107); Glucose 97 mg/dL (70-105); Osmolality,Calculated 290 (280-300); Potassium 3.8 mEq/L (3.5-5.1); Sodium 140 mEq/L (136-145); Troponin I < 0.03 ng/mL (< 0.04)
[2021-10-16 20:31] LABS: ABG Base Excess -1 mEq/L (-2 to 3); ABG HCO3 23 mEq/L (21-27); ABG Oxygen Saturation 98 % (95-98); ABG PCO2 33 mmHg (35-45); ABG PH 7.45 pH Units (7.32-7.45); ABG PO2 96 mmHg (85-104); ABG TCO2 24 mEq/L (20-26)
[2021-10-16] MEDS ORDERED: Iopamidol - 370 500 ML MLS IVP ONE (20:31)
[2021-10-16] MEDS: Ipratropium/Albuterol Neb 3 ML IH SCH (20:40)
[2021-10-16 20:55] LABS: INR 1.1; Prothrombin Time 12.1 Seconds (9.4-12.1)
[2021-10-16] MEDS ORDERED: Doxycycline 200 MG in 0.9 % Sodium Chloride 250 ML IVPB ONE (21:52)
[2021-10-16] MEDS ORDERED: *HR* LORazepam 2 MG/ML VIAL IVP ONE (23:13)
[2021-10-16 23:47] LABS: Influenza A PCR Negative (Negative); Influenza B PCR Negative (Negative); Resp. Syncytial Virus PCR Negative (Negative)
[2021-10-17] LABS: SARS-CoV-2 by PCR (In House) Negative (Negative)
[2021-10-17] MEDS ORDERED: Ipratropium/Albuterol Neb 3 ML IH SCH (04:15)
[2021-10-17] MEDS ORDERED: *HR* LORazepam 2 MG/ML VIAL IVP ONE ×2 (04:16→21:17)
[2021-10-17] MEDS ORDERED: Ipratropium/Albuterol Neb 3 ML IH ONE ×2 (04:32→10:41)
[2021-10-17] MEDS ORDERED: *HR* LORazepam 1 MG TABLET PO STA (10:41)
[2021-10-17] MEDS ORDERED: Naloxone 0.4 MG/ML INJ IVP PRN (13:43)
[2021-10-17] MEDS ORDERED: Ondansetron ODT 4 MG TAB.RAPDIS SL PRN (13:43)
[2021-10-17] MEDS: Nicotine 14 MG PATCH.TD24 TD SCH (15:38)
[2021-10-17] MEDS: *HR* Heparin 5,000 UNIT/ML VIAL SQ SCH ×2 (15:40→20:57)
[2021-10-17] MEDS ORDERED: *HR* LORazepam 1 MG TABLET PO ONE (15:45)
[2021-10-17] MEDS: Ipratropium/Albuterol Neb 3 ML IH SCH ×2 (15:52→21:51)
[2021-10-17] MEDS: MethylPREDNISolone 40 MG/ML VIAL IVP SCH (17:07)
[2021-10-17] MEDS: Budesonide/Formoterol 160/4.5 1 PUFF INH IH SCH (21:58)
[2021-10-18] MEDS: Ipratropium/Albuterol Neb 3 ML IH SCH ×2 (04:51→09:02)
[2021-10-18] MEDS: MethylPREDNISolone 40 MG/ML VIAL IVP SCH (05:17)
[2021-10-18] MEDS: *HR* Heparin 5,000 UNIT/ML VIAL SQ SCH (05:18)
[2021-10-18] MEDS ORDERED: *HR* LORazepam 2 MG/ML VIAL IVP ONE (05:26)
[2021-10-18 06:02] VITALS: BP 125/81; PULSE 87; TEMP 97.6
[2021-10-18 06:26] LABS: Hematocrit 40.3 % (35.3-44.9); Hemoglobin 13.2 g/dL (11.5-15.4); Immature Granulocytes % 0.4 % (0-4); Lymphocytes % 15.7 %; Mean Corpuscular HGB Conc 32.8 g/dL (31.6-35.5); Mean Corpuscular Hemoglobin 31.1 pg (28.0-33.3); Mean Platelet Volume 9.6 fL (9.4-12.4); Platelet Count 308 K/mcL (140-400); Red Blood Count 4.24 M/mcL (3.82-4.97); Red Cell Distribution Width 14.2 % (11.5-14.5); Segmented Neutrophils % 77.8 %; White Blood Count 15.9 K/mcL (4.3-11.1)
[2021-10-18 06:27] LABS: Basophils % 0.1 %; Lymphocytes # 2.5 K/mcL (0.6-4.6); Neutrophils # 12.4 K/mcL (1.6-8.9)
[2021-10-18 07:12] LABS: BUN/Creatinine Ratio 20 (6-26); Blood Urea Nitrogen 13 mg/dL (8-23); Calcium 9.1 mg/dL (8.6-10.3); Carbon Dioxide 25 mEq/L (23-29); Chloride 107 mEq/L (98-107); Glucose 102 mg/dL (70-105); Magnesium 1.9 mg/dL (1.6-2.6); Osmolality,Calculated 294 (280-300); Sodium 142 mEq/L (136-145)
[2021-10-18] MEDS: Nicotine 14 MG PATCH.TD24 TD SCH (07:36)
[2021-10-18] MEDS ORDERED: Famotidine 20 MG TABLET PO SCH (09:00)
[2021-10-18] MEDS ORDERED: Cholecalciferol (D-3) 1,000 UNIT (25MCG) TABLET PO SCH (09:00)
[2021-10-18] MEDS ORDERED: Metoprolol XL (24 HR) Succ 25 MG TAB.ER.24H PO SCH (09:00)
[2021-10-18] MEDS ORDERED: lisinopriL 10 MG TABLET PO SCH (09:00)
[2021-10-18] MEDS ORDERED: Aspirin 81 MG TAB.CHEW PO SCH (09:00)
[2021-10-18] MEDS: Budesonide/Formoterol 160/4.5 1 PUFF INH IH SCH (09:10)
[2021-10-18 09:15] VITALS: O2SAT 92
[2021-10-18] MEDS ORDERED: QUEtiapine Fumarate 25 MG TABLET PO SCH (21:00)
== END 2021-10-18 10:00 | disposition home or self-care (01) ==
LOC: 3BNU 18:56 → EMEROOARM 18:56 → SUATTDRO 10-17 18:49 → 3BNU 10-17 20:00
PROVIDERS: ADMIT Internal Medicine; ATTEND Family Medicine